=== PATIENT | male | born 1960 | race Caucasian/White ===

== ENCOUNTER 2021-10-05 18:19 | Inpatient (IN) | payer MEDICARE, BC ==
[2021-10-05] MEDS ORDERED: SODIUM CHLORIDE 0.9% 1,000 ML IV STA (18:24)
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
[2021-10-05 19:04] LABS: Basophils % (A) 1 %; Eosinophils % (A) 1 %; HCT 40.4 % (39.0-53.0); HGB 13.8 gm/dL (13.0-17.5); Lymphocytes # (A) 0.6 k/uL (1.0-4.8); Lymphocytes % (A) 20 %; MCH 34.6 pg (25.0-35.0); MCHC 34.2 g/dL (31.0-37.0); MCV 101.2 fL (80.0-100.0); Macrocytosis Slight; Mean Platelet Volume 9.9; Monocytes # (A) 0.2 k/uL (0-1.0); Monocytes % (A) 7 %; Neutrophils % (A) 70 %; RBC 3.99 m/uL (4.30-5.90); RDW 14.2 % (11.5-15.5); WBC 2.9 k/uL (3.8-10.6)
[2021-10-05 19:12] LABS: INR 1.1 (<1.2); Partial Thromboplastin Time 25.6 sec (22.0-30.0); Prothrombin Time 11.5 sec (9.0-12.0)
[2021-10-05 19:40] LABS: ALT 131 U/L (4-49); AST 328 U/L (17-59); African American GFR (CKD) >90 (>60 ml/min/1.73 sqM); Albumin 4.6 g/dL (3.5-5.0); Alkaline Phosphatase 233 U/L (38-126); Anion Gap 17 mmol/L; Blood Urea Nitrogen 8 mg/dL (9-20); Calcium 8.1 mg/dL (8.4-10.2); Carbon Dioxide 24 mmol/L (22-30); Chloride 102 mmol/L (98-107); Glucose 123 mg/dL (74-99); Lipase 489 U/L (23-300); Magnesium 1.6 mg/dL (1.6-2.3); Non-African American GFR(CKD) >90 (>60 ml/min/1.73 sqM); Potassium 3.7 mmol/L (3.5-5.1); Sodium 143 mmol/L (137-145); Total Bilirubin 3.8 mg/dL (0.2-1.3)
--- NOTE | 2021-10-05 19:51 | XR ---
EXAMINATION TYPE: XR chest 2V DATE OF EXAM: 10/05/2021 7:26 PM COMPARISON: None TECHNIQUE: XR chest 2V Frontal view of the chest. CLINICAL INDICATION:Male, 60 years old with history of dysrhythmia; FINDINGS: Lungs/Pleura: There is flattening of the diaphragm with increased lucency of the lungs. No evidence o f pneumothorax, pleural effusion or focal consolidation. Pulmonary vascularity: Unremarkable. Heart/mediastinum: Cardiomediastinal silhouette is prominent in size. Musculoskeletal: No acute osseous pathology. IMPRESSION: 1. No acute cardiopulmonary disease process. 2. COPD changes.
[2021-10-05 20:01] LABS: Platelet Count 31 k/uL (150-450)
[2021-10-05 20:30] LABS: Alcohol 421 mg/dL
[2021-10-05] MEDS ORDERED: LORazepam 2 MG/ML INJ IV PRN (20:53)
[2021-10-05] MEDS ORDERED: THIAMINE 100 MG/ML 2 ML VIAL IM STA (20:53)
[2021-10-05] MEDS ORDERED: NALOXONE 0.4 MG/ML 1 ML VIAL IV PRN (21:14)
[2021-10-05] MEDS ORDERED: ASPIRIN 81 MG PO STA (21:16)
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
[2021-10-06] MEDS: SODIUM CHLORIDE 0.9% 1,000 ML IV SCH ×3 (03:08→15:38)
[2021-10-06] MEDS ORDERED: SODIUM CHLORIDE 0.9% 1,000 ML IV ONE (03:08)
[2021-10-06 06:01] LABS: HCT 34.5 % (39.0-53.0); HGB 11.9 gm/dL (13.0-17.5); MCHC 34.4 g/dL (31.0-37.0); MCV 101.7 fL (80.0-100.0); Macrocytosis Slight; Mean Platelet Volume 10.1; RBC 3.39 m/uL (4.30-5.90); RDW 14.3 % (11.5-15.5); WBC 2.3 k/uL (3.8-10.6)
[2021-10-06 06:02] LABS: ALT 137 U/L (4-49); AST 345 U/L (17-59); African American GFR (CKD) >90 (>60 ml/min/1.73 sqM); Albumin 3.9 g/dL (3.5-5.0); Alkaline Phosphatase 186 U/L (38-126); Anion Gap 12 mmol/L; Blood Urea Nitrogen 7 mg/dL (9-20); Calcium 7.8 mg/dL (8.4-10.2); Carbon Dioxide 25 mmol/L (22-30); Chloride 103 mmol/L (98-107); Glucose 88 mg/dL (74-99); Non-African American GFR(CKD) >90 (>60 ml/min/1.73 sqM); Potassium 3.5 mmol/L (3.5-5.1); Sodium 140 mmol/L (137-145); Total Bilirubin 3.7 mg/dL (0.2-1.3); Total Protein 7.1 g/dL (6.3-8.2)
[2021-10-06 06:03] LABS: Platelet Count 23 k/uL (150-450)
[2021-10-06] MEDS: THIAMINE 100 MG TAB PO SCH ×2 (10:05→17:40)
[2021-10-06] MEDS: LORazepam 2 MG/ML INJ IV PRN ×5 (11:39→23:07)
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
[2021-10-06 16:20] LABS: INR 1.1 (<1.2); LDH 935 U/L (313-618); Partial Thromboplastin Time 28.4 sec (22.0-30.0); Prothrombin Time 12.1 sec (9.0-12.0)
--- NOTE | 2021-10-06 20:10 | P.CONS ---
History of Present Illness - Reason for Consult Consult date: 10/06/21 pancytopenia Requesting physician: Anastacio Mcmanus - Chief Complaint ETOH Intox - History of Present Illness Mr. Linda is a 60 year old male who presented with ETOH intoxication, he was seen in ER with evidence of DTs. On admission Liver enzymes elevated and WBC, Hemoglobin and platelets all decreased, therefore we have been asked to further evaluate pancytopenia. Patient is awake, moderate tremors. Answering appropriately and calmly. He denies any known history of low blood counts, liver disease or cancer. Review of Systems All systems: negative Constitutional: Reports as per HPI Past Medical History Past Medical History: Atrial Fibrillation History of Any Multi-Drug Resistant Organisms: None Reported Past Surgical History: Orthopedic Surgery Past Psychological History: Anxiety, Depression Smoking Status: Current every day smoker Past Alcohol Use History: Abuse, Daily, Heavy Past Drug Use History: None Reported - Past Family History Father Family Medical History: Cancer Medications and Allergies Home Medications Medication Instructions Recorded Confirmed Type No Known Home Medications 10/05/21 10/05/21 History Allergies Allergy/AdvReac Type Severity Reaction Status Date / Time No Known Allergies Allergy Verified 10/05/21 22:04 Physical Exam Vitals: Vital Signs Temp Pulse Pulse Resp BP BP Pulse Ox 10/06/21 14:00 18 10/06/21 11:30 98.0 F 95 18 161/95 97 10/06/21 07:36 98.0 F 100 18 148/73 95 10/06/21 05:15 98 15 141/76 95 10/06/21 03:00 98 20 158/84 94 L 10/05/21 18:21 97.5 F L 113 H 18 130/96 94 L Intake and Output 10/05/21 10/06/21 10/06/21 22:59 06:59 14:59 Intake Total 790 Balance 790 Intake: Oral 790 Other: Voiding Method Toilet Weight 77.111 kg 77.111 kg - Constitutional General appearance: cooperative, mild distress - EENT Eyes: poor dentition - Neck Neck: normal ROM - Respiratory Respiratory: bilateral: diminished - Cardiovascular Rhythm: regularly irregular - Gastrointestinal 2-3 Below diaphragm General gastrointestinal: hepatomegaly - Integumentary Integumentary: pale - Musculoskeletal Tremors Musculoskeletal: generalized weakness - Psychiatric Psychiatric: A&O x's 3 Results CBC & Chem 7: 10/06/21 05:14 10/06/21 05:14 Labs: Abnormal Lab Results - Last 24 Hours (Table) 10/05/21 10/05/21 10/05/21 Range/Units 18:46 18:46 18:46 WBC 2.9 L (3.8-10.6) k/uL RBC 3.99 L (4.30-5.90) m/uL Hgb (13.0-17.5) gm/dL Hct (39.0-53.0) % MCV 101.2 H (80.0-100.0) fL Plt Count 31 L (150-450) k/uL Lymphocytes # 0.6 L (1.0-4.8) k/uL BUN 8 L (9-20) mg/dL Creatinine 0.59 L (0.66-1.25) mg/dL Glucose 123 H (74-99) mg/dL Plasma Lactic Acid Rogelio (0.7-2.0) mmol/L Calcium 8.1 L (8.4-10.2) mg/dL Total Bilirubin 3.8 H (0.2-1.3) mg/dL AST 328 H (17-59) U/L ALT 131 H (4-49) U/L Alkaline Phosphatase 233 H (38-126) U/L Troponin I 0.039 H* (0.000-0.034) ng/mL Lipase 489 H (23-300) U/L Vitamin B12 (200.0-944.0) pg/mL Serum Alcohol 421 H* mg/dL 10/06/21 10/06/21 10/06/21 Range/Units 01:31 01:31 05:14 WBC (3.8-10.6) k/uL RBC (4.30-5.90) m/uL Hgb (13.0-17.5) gm/dL Hct (39.0-53.0) % MCV (80.0-100.0) fL Plt Count (150-450) k/uL Lymphocytes # (1.0-4.8) k/uL BUN (9-20) mg/dL Creatinine (0.66-1.25) mg/dL Glucose (74-99) mg/dL Plasma Lactic Acid Rogelio 2.1 H* (0.7-2.0) mmol/L Calcium (8.4-10.2) mg/dL Total Bilirubin (0.2-1.3) mg/dL AST (17-59) U/L ALT (4-49) U/L Alkaline Phosphatase (38-126) U/L Troponin I 0.037 H* (0.000-0.034) ng/mL Lipase (23-300) U/L Vitamin B12 1166.0 H (200.0-944.0) pg/mL Serum Alcohol mg/dL 10/06/21 10/06/21 Range/Units 05:14 05:14 WBC 2.3 L (3.8-10.6) k/uL RBC 3.39 L (4.30-5.90) m/uL Hgb 11.9 L (13.0-17.5) gm/dL Hct 34.5 L (39.0-53.0) % MCV 101.7 H (80.0-100.0) fL Plt Count 23 L (150-450) k/uL Lymphocytes # (1.0-4.8) k/uL BUN 7 L (9-20) mg/dL Creatinine 0.55 L (0.66-1.25) mg/dL Glucose (74-99) mg/dL Plasma Lactic Acid Rogelio (0.7-2.0) mmol/L Calcium 7.8 L (8.4-10.2) mg/dL Total Bilirubin 3.7 H (0.2-1.3) mg/dL AST 345 H (17-59) U/L ALT 137 H (4-49) U/L Alkaline Phosphatase 186 H (38-126) U/L Troponin I (0.000-0.034) ng/mL Lipase (23-300) U/L Vitamin B12 (200.0-944.0) pg/mL Serum Alcohol mg/dL Assessment and Plan (1) Pancytopenia Narrative/Plan: likely related to ETOH and underlying liver disease with possible marrow suppression Other causes worked up Assessment of underlying liver disease ETOH withdrawals and other medical care per primary team. Current Visit: Yes Status: Acute Code(s): D61.818 - OTHER PANCYTOPENIA SNOMED Code(s): 519094426 Plan: Dr. Evans: I have completed the full history and physical and developed the above impression and plan, agree with dictation dictated as a scribe.
[2021-10-06 23:06] LABS: Protein, Total 6.5 g/dL (6.2-8.2)
[2021-10-06 23:15] LABS: % Iron Saturation 21.43 (15.00-50.00); Iron 58 ug/dL (65-175); Rheumatoid Factor, Qnt <10 IU/mL (0-15); Total Iron Binding Capacity 269 ug/dL (228-460)
--- NOTE | 2021-10-07 08:08 | US ---
EXAMINATION TYPE: US liver DATE OF EXAM: 10/07/2021 COMPARISON: NONE CLINICAL HISTORY: liver dz, etoh. liver dz, etoh *Patient was uncooperative during exam EXAM MEASUREMENTS: Liver Length: 15.6 cm Gallbladder Wall: 0.21 cm CBD: 0.81 cm Right Kidney: 12.6 x 6.5 x 6.1 cm Pancreas: Obscured by bowel gas Liver: Increased attenuation, decreased visualization of vessels suggestive of fatty infiltrate, het erogeneous Gallbladder: Multiple mobile stones seen in GB Evidence for sonographic Mobley's sign: No CBD: Possibly dilated Right Kidney: wnl Trace amount of fluid seen in RUQ IMPRESSION: 1. Cholelithiasis. 2. Dilated common bile duct. 3. Limitation due to bowel gas obscuring portions of the exam.
[2021-10-07] MEDS: SODIUM CHLORIDE 0.9% 1,000 ML IV SCH ×4 (08:21→17:09)
[2021-10-07] MEDS: THIAMINE 100 MG TAB PO SCH ×2 (08:27→17:07)
[2021-10-07] MEDS: LORazepam 2 MG/ML INJ IV PRN ×6 (08:27→23:14)
[2021-10-07 08:54] LABS: Free Kappa Lt Chain Qnt, Serum 3.78 mg/dL (0.33-1.94); Free Lambda Lt Chain Qnt, Seru 2.64 mg/dL (0.57-2.63)
[2021-10-07 09:13] LABS: ALT 129 U/L (4-49); AST 341 U/L (17-59); African American GFR (CKD) >90 (>60 ml/min/1.73 sqM); Albumin 3.7 g/dL (3.5-5.0); Alkaline Phosphatase 168 U/L (38-126); Anion Gap 14 mmol/L; Blood Urea Nitrogen 8 mg/dL (9-20); Calcium 8.2 mg/dL (8.4-10.2); Carbon Dioxide 23 mmol/L (22-30); Chloride 98 mmol/L (98-107); Glucose 71 mg/dL (74-99); Non-African American GFR(CKD) >90 (>60 ml/min/1.73 sqM); Potassium 3.3 mmol/L (3.5-5.1); Sodium 135 mmol/L (137-145); Total Bilirubin 2.8 mg/dL (0.2-1.3); Total Protein 6.7 g/dL (6.3-8.2)
[2021-10-07 09:28] LABS: Basophils % (A) 2 %; Eosinophils % (A) 1 %; HCT 35.7 % (39.0-53.0); HGB 11.9 gm/dL (13.0-17.5); Lymphocytes # (A) 0.7 k/uL (1.0-4.8); Lymphocytes % (A) 38 %; MCHC 33.4 g/dL (31.0-37.0); MCV 101.7 fL (80.0-100.0); Macrocytosis Slight; Monocytes # (A) 0.2 k/uL (0-1.0); Monocytes % (A) 10 %; Neutrophils # (A) 0.9 k/uL (1.3-7.7); Neutrophils % (A) 46 %; RBC 3.51 m/uL (4.30-5.90); RDW 13.4 % (11.5-15.5); WBC 1.9 k/uL (3.8-10.6)
[2021-10-07 10:15] LABS: Platelet Count 13 k/uL (150-450)
[2021-10-07] MEDS ORDERED: POTASSIUM CHLORIDE ER 20 MEQ TAB.ER PO STA (13:32)
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
[2021-10-07] MEDS: MAGNESIUM SULFATE-D5W PMX 1 GM in DEXTROSE/WATER 1 100ML.BAG IVPB SCH ×2 (14:01→17:08)
[2021-10-08] MEDS ORDERED: chlordiazePOXIDE 25 MG CAP PO STA (01:04)
[2021-10-08] MEDS: LORazepam 2 MG/ML INJ IV PRN ×3 (01:07→23:05)
[2021-10-08 08:04] LABS: Basophils # (A) 0.1 k/uL (0-0.2); Basophils % (A) 2 %; Eosinophils % (A) 1 %; HGB 13.5 gm/dL (13.0-17.5); Lymphocytes # (A) 0.8 k/uL (1.0-4.8); Lymphocytes % (A) 30 %; MCH 33.1 pg (25.0-35.0); MCV 103.3 fL (80.0-100.0); Macrocytosis Slight; Mean Platelet Volume 12.2; Monocytes # (A) 0.1 k/uL (0-1.0); Monocytes % (A) 5 %; Neutrophils # (A) 1.5 k/uL (1.3-7.7); Neutrophils % (A) 59 %; RBC 4.07 m/uL (4.30-5.90); RDW 13.6 % (11.5-15.5); WBC 2.5 k/uL (3.8-10.6)
[2021-10-08 08:17] LABS: ALT 129 U/L (4-49); AST 331 U/L (17-59); African American GFR (CKD) >90 (>60 ml/min/1.73 sqM); Albumin 4.2 g/dL (3.5-5.0); Alkaline Phosphatase 204 U/L (38-126); Anion Gap 11 mmol/L; Blood Urea Nitrogen 9 mg/dL (9-20); Calcium 8.5 mg/dL (8.4-10.2); Carbon Dioxide 22 mmol/L (22-30); Chloride 102 mmol/L (98-107); Glucose 98 mg/dL (74-99); Magnesium 1.7 mg/dL (1.6-2.3); Non-African American GFR(CKD) >90 (>60 ml/min/1.73 sqM); Potassium 3.7 mmol/L (3.5-5.1); Sodium 135 mmol/L (137-145); Total Bilirubin 2.3 mg/dL (0.2-1.3); Total Protein 7.8 g/dL (6.3-8.2)
[2021-10-08 08:20] LABS: Platelet Count 14 k/uL (150-450)
[2021-10-08] MEDS: SODIUM CHLORIDE 0.9% 1,000 ML IV SCH (08:52)
[2021-10-08] MEDS: THIAMINE 100 MG TAB PO SCH ×2 (08:54→17:43)
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
[2021-10-08] MEDS: chlordiazePOXIDE 25 MG CAP PO SCH ×2 (17:43→20:51)
[2021-10-08] MEDS: HYDROcodone/APAP 5-325MG 1 EACH TAB PO PRN (20:51)
[2021-10-08] MEDS: NICOTINE 21MG/24HR PATCH TRANSDERM SCH (20:51)
[2021-10-09] MEDS: THIAMINE 100 MG TAB PO SCH ×2 (06:11→18:10)
[2021-10-09] MEDS: SODIUM CHLORIDE 0.9% 1,000 ML IV SCH ×3 (06:19→19:46)
[2021-10-09 08:18] LABS: Basophils % (A) 0 %; Eosinophils % (A) 0 %; HCT 42.5 % (39.0-53.0); Lymphocytes # (A) 0.7 k/uL (1.0-4.8); Lymphocytes % (A) 22 %; MCH 33.5 pg (25.0-35.0); MCHC 32.8 g/dL (31.0-37.0); MCV 102.2 fL (80.0-100.0); Macrocytosis Slight; Mean Platelet Volume 11.9; Monocytes # (A) 0.2 k/uL (0-1.0); Monocytes % (A) 7 %; Neutrophils # (A) 2.1 k/uL (1.3-7.7); Neutrophils % (A) 68 %; RBC 4.16 m/uL (4.30-5.90); RDW 13.7 % (11.5-15.5); WBC 3.1 k/uL (3.8-10.6)
[2021-10-09 08:28] LABS: Platelet Count 21 k/uL (150-450)
[2021-10-09 08:31] LABS: ALT 103 U/L (4-49); AST 230 U/L (17-59); African American GFR (CKD) >90 (>60 ml/min/1.73 sqM); Albumin 4.2 g/dL (3.5-5.0); Alkaline Phosphatase 197 U/L (38-126); Anion Gap 15 mmol/L; Blood Urea Nitrogen 14 mg/dL (9-20); Calcium 8.6 mg/dL (8.4-10.2); Carbon Dioxide 22 mmol/L (22-30); Chloride 98 mmol/L (98-107); Glucose 102 mg/dL (74-99); Magnesium 1.7 mg/dL (1.6-2.3); Non-African American GFR(CKD) >90 (>60 ml/min/1.73 sqM); Phosphorus 3.9 mg/dL (2.5-4.5); Potassium 3.2 mmol/L (3.5-5.1); Sodium 135 mmol/L (137-145); Total Bilirubin 2.3 mg/dL (0.2-1.3); Total Protein 7.8 g/dL (6.3-8.2)
[2021-10-09] MEDS: NICOTINE 21MG/24HR PATCH TRANSDERM SCH (08:31)
[2021-10-09] MEDS: chlordiazePOXIDE 25 MG CAP PO SCH ×3 (08:32→20:27)
[2021-10-09] MEDS: LORazepam 2 MG/ML INJ IV PRN ×3 (08:32→22:26)
--- NOTE | 2021-10-09 10:55 | P.PN ---
Subjective Patient was examined at bedside today not complaining of any worsening symptomatology. Trace approximately fifth a day. Denies any episodes of fever, chills, nausea or vomiting. Objective - Vital Signs Vital signs: Vital Signs Temp 99.1 F 10/09/21 08:27 Pulse 110 H 10/09/21 08:27 Resp 18 10/09/21 08:27 BP 110/74 10/09/21 08:27 Pulse Ox 93 L 10/09/21 08:27 FiO2 Intake & Output 10/08/21 10/09/21 10/09/21 18:59 06:59 18:59 Intake Total 10 Output Total 500 200 Balance -500 -200 10 Intake: IV 10 Invasive Line 2 10 Output: Urine 500 200 Other: Voiding Method Urinal Urinal Diaper Diaper # Voids 2 2 - Exam Constitutional: No acute distress, on room air HEENT: Pupils equally reactive to light, atraumatic, normocephalic. Lungs: Clear to auscultation bilaterally, no wheezing, no crackles Cardiovascular: Sinus tachycardia, S1-S2 normal, no murmur, no peripheral edema Abdominal: Soft, nontender, no guarding, rebound or rigidity Extremities: No cyanosis or clubbing Neuro: No focal neurological signs alert - Labs CBC & Chem 7: 10/09/21 07:32 10/09/21 07:32 Labs: Abnormal Lab Results - Last 24 Hours (Table) 10/09/21 10/09/21 Range/Units 07:32 07:32 WBC 3.1 L (3.8-10.6) k/uL RBC 4.16 L (4.30-5.90) m/uL MCV 102.2 H (80.0-100.0) fL Plt Count 21 L (150-450) k/uL Lymphocytes # 0.7 L (1.0-4.8) k/uL Sodium 135 L (137-145) mmol/L Potassium 3.2 L (3.5-5.1) mmol/L Creatinine 0.64 L (0.66-1.25) mg/dL Glucose 102 H (74-99) mg/dL Total Bilirubin 2.3 H (0.2-1.3) mg/dL AST 230 H (17-59) U/L ALT 103 H (4-49) U/L Alkaline Phosphatase 197 H (38-126) U/L Assessment and Plan Assessment: Alcohol intoxication, impending withdrawal -[facility] protocol-patient is still requiring IV Ativan use overnight. -Librium for withdrawal symptoms -Thiamine -Fall, aspiration, seizure precautions -Monitor electrolytes -IV fluids Elevated troponin -Flat trajectory -No chest pain, likely demand ischemia -Continue Cardiac monitoring Pancytopenia -Clinic count today trending up from 14-21. -Presumed Secondary to bone marrow suppression from chronic alcohol use, however hematology oncology is consulted for further recommendations. -No anticoagulation, no antiplatelet medication Abnormal LFTs -Improving. Total bilirubin improved, liver ultrasound showed fatty liver, cholelithiasis, dilated common bile duct -Continue to monitor Hypomagnesemia Hypokalemia -Continue to monitor and replace magnesium and potassium. We'll order another 2 g of IV magnesium DVT prophylaxis -IPCDs -No heparin or Lovenox due to low platelets. Disposition: Patient will be downgraded to general medical floor. He will continue to wear remote telemetry. We'll wait further recommendations from hematology oncology regarding patient's pancytopenia. Patient is currently still on IV Ativan for all call withdrawals which we will continue to transition off. PTOT of also been consulted for rehab recommendations this patient is showing some significant generalized weakness
[2021-10-09 15:50] LABS: Appearance,Urine Clear (Clear); Bilirubin,Urine 1+ (Negative); Blood,Urine Negative (Negative); Color,Urine Orange; Glucose,Urine (UA) Negative (Negative); Ketones,Urine 1+ (Negative); Leukocyte Esterase,Urine Negative (Negative); Mucus,Urine Few /hpf; Nitrite,Urine Negative (Negative); PH, Urine 6.5 (5.0-8.0); Protein,Urine 1+ (Negative); RBC,Urine 2 /hpf (0-5); Specific Gravity,Urine 1.031 (1.001-1.035); Squamous Epithelial Cell,Urine <1 /hpf (0-4); WBC,Urine 1 /hpf (0-5)
[2021-10-10] MEDS: LORazepam 2 MG/ML INJ IV PRN ×2 (02:28→11:30)
[2021-10-10] MEDS: THIAMINE 100 MG TAB PO SCH ×2 (06:20→16:54)
[2021-10-10] MEDS: SODIUM CHLORIDE 0.9% 1,000 ML IV SCH ×4 (06:37→20:58)
[2021-10-10] MEDS: NICOTINE 21MG/24HR PATCH TRANSDERM SCH (09:44)
[2021-10-10] MEDS: chlordiazePOXIDE 25 MG CAP PO SCH ×3 (09:44→20:58)
[2021-10-10 13:23] LABS: Albumin 3.64 g/dL (3.80-4.90); Gamma Globulin 1.21 g/dL (0.70-1.50)
[2021-10-10 14:56] LABS: Basophils % (A) 0 %; Eosinophils % (A) 2 %; HGB 12.5 gm/dL (13.0-17.5); Lymphocytes # (A) 0.7 k/uL (1.0-4.8); Lymphocytes % (A) 36 %; MCH 33.9 pg (25.0-35.0); MCHC 32.9 g/dL (31.0-37.0); MCV 102.9 fL (80.0-100.0); Macrocytosis Slight; Mean Platelet Volume 12.3; Monocytes # (A) 0.2 k/uL (0-1.0); Monocytes % (A) 12 %; Neutrophils # (A) 0.8 k/uL (1.3-7.7); Neutrophils % (A) 46 %; RBC 3.69 m/uL (4.30-5.90); RDW 13.8 % (11.5-15.5); WBC 1.8 k/uL (3.8-10.6)
[2021-10-10 15:08] LABS: Potassium 3.5 mmol/L (3.5-5.1)
[2021-10-10 15:09] LABS: African American GFR (CKD) >90 (>60 ml/min/1.73 sqM); Anion Gap 5 mmol/L; Blood Urea Nitrogen 10 mg/dL (9-20); Calcium 8.2 mg/dL (8.4-10.2); Carbon Dioxide 27 mmol/L (22-30); Chloride 104 mmol/L (98-107); Glucose 101 mg/dL (74-99); Non-African American GFR(CKD) >90 (>60 ml/min/1.73 sqM); Platelet Count 26 k/uL (150-450); Sodium 136 mmol/L (137-145)
--- NOTE | 2021-10-10 15:11 | P.PN ---
Subjective Patient was examined at bedside today not complaining of any worsening symptomatology does endorse a cough with very minimal sputum production. Dis cussed with RN present at bedside. Still waiting on morning labs still not have been drawn. Objective - Vital Signs Vital signs: Vital Signs Temp 98.0 F 10/10/21 08:00 Pulse 94 10/10/21 08:00 Resp 18 10/10/21 08:00 BP 128/76 10/10/21 08:00 Pulse Ox 93 L 10/10/21 08:00 FiO2 Intake & Output 10/09/21 10/10/21 10/10/21 18:59 06:59 18:59 Intake Total 128 357 Output Total 300 Balance 128 -300 357 Intake: IV 10 Invasive Line 2 10 Oral 118 357 Output: Urine 300 Other: Voiding Method Urinal Urinal Urinal Diaper Diaper Diaper # Voids 1 1 1 # Bowel Movements 1 1 - Exam Constitutional: No acute distress, on room air HEENT: Pupils equally reactive to light, atraumatic, normocephalic. Lungs: Clear to auscultation bilaterally, no wheezing, no crackles Cardiovascular: Sinus S1-S2 normal, no murmur, no peripheral edema Abdominal: Soft, nontender, no guarding, rebound or rigidity Extremities: No cyanosis or clubbing Neuro: No focal neurological signs alert - Labs CBC & Chem 7: 10/09/21 07:32 10/09/21 07:32 Labs: Abnormal Lab Results - Last 24 Hours (Table) 10/06/21 10/09/21 Range/Units 15:29 14:38 Albumin (PEP) 3.64 L (3.80-4.90) g/dL [id number] 0.54 L (0.60-1.00) g/dL Urine Protein 1+ H (Negative) Urine Ketones 1+ H (Negative) Urine Bilirubin 1+ H (Negative) Urine Mucus Few H (None) /hpf Microbiology - Last 24 Hours (Table) 10/08/21 11:39 Blood Culture - Preliminary Blood No Growth after 48 hours Assessment and Plan Assessment: Alcohol intoxication, impending withdrawal -[facility] protocol-patient is still requiring IV Ativan use overnight. -Librium for withdrawal symptoms we'll wean that down today to 3 times a day -Thiamine -Fall, aspiration, seizure precautions -Monitor electrolytes -IV fluids Elevated troponin -Flat trajectory -No chest pain, likely demand ischemia -Continue Cardiac monitoring Pancytopenia -Clinic count today trending up 26 -Presumed Secondary to bone marrow suppression from chronic alcohol use, however hematology oncology is consulted for further recommendations. -No anticoagulation, no antiplatelet medication -Hematology/oncology pending recommendations regarding discharge planning. Abnormal LFTs -Improving. Total bilirubin improved, liver ultrasound showed fatty liver, cholelithiasis, dilated common bile duct -Continue to monitor DVT prophylaxis -IPCDs -No heparin or Lovenox due to low platelets. Disposition: Patient will be downgraded to general medical floor. He will continue to wear remote telemetry. We'll wait further recommendations from hematology oncology regarding patient's pancytopenia. Patient is currently still on IV Ativan for all call withdrawals which we will continue to transition off. PTOT of also been consulted for rehab recommendations this patient is showing some significant generalized weakness
--- NOTE | 2021-10-10 16:16 | P.PN ---
Subjective Progress Note Date: 10/10/21 Patient without any new complaints. He still appears to be somewhat shaky. No fever/chills/nausea/vomiting. Objective - Vital Signs Vital signs: Vital Signs Temp 98.1 F 10/10/21 14:00 Pulse 65 10/10/21 14:00 Resp 18 10/10/21 14:00 BP 112/74 10/10/21 14:00 Pulse Ox 94 L 10/10/21 14:00 FiO2 Intake & Output 10/09/21 10/10/21 10/10/21 18:59 06:59 18:59 Intake Total 128 357 Output Total 300 Balance 128 -300 357 Intake: IV 10 Invasive Line 2 10 Oral 118 357 Output: Urine 300 Other: Voiding Method Urinal Urinal Urinal Diaper Diaper Diaper # Voids 1 1 1 # Bowel Movements 1 1 - Constitutional General appearance: Present: no acute distress - EENT Eyes: Present: EOMI ENT: Present: hearing grossly normal, normal oropharynx - Respiratory Respiratory: bilateral: CTA - Cardiovascular Rhythm: regular Heart sounds: normal: S1, S2 - Gastrointestinal General gastrointestinal: Present: normal bowel sounds, soft - Integumentary Integumentary: Present: normal - Neurologic Neurologic: Present: CNII-XII intact - Musculoskeletal Musculoskeletal: Present: generalized weakness, strength equal bilaterally - Psychiatric Psychiatric: Present: A&O x's 3, appropriate affect - Labs CBC & Chem 7: 10/10/21 14:36 10/10/21 14:36 Labs: Abnormal Lab Results - Last 24 Hours (Table) 10/06/21 10/10/21 10/10/21 Range/Units 15:29 14:36 14:36 WBC 1.8 L (3.8-10.6) k/uL RBC 3.69 L (4.30-5.90) m/uL Hgb 12.5 L (13.0-17.5) gm/dL Hct 38.0 L (39.0-53.0) % MCV 102.9 H (80.0-100.0) fL Plt Count 26 L (150-450) k/uL Neutrophils # 0.8 L (1.3-7.7) k/uL Lymphocytes # 0.7 L (1.0-4.8) k/uL Sodium 136 L (137-145) mmol/L Creatinine 0.58 L (0.66-1.25) mg/dL Glucose 101 H (74-99) mg/dL Calcium 8.2 L (8.4-10.2) mg/dL Albumin (PEP) 3.64 L (3.80-4.90) g/dL [id number] 0.54 L (0.60-1.00) g/dL Microbiology - Last 24 Hours (Table) 10/08/21 11:39 Blood Culture - Preliminary Blood No Growth after 48 hours Assessment and Plan (1) Pancytopenia Narrative/Plan: Multiple labs ordered. Results are available so far do not show any deficiency state, or paraproteinemia. Protein electrophoresis is pending. Otherwise clinical picture so far appears to be quite compatible with the initial primary differential diagnosis that is bone marrow suppression from excessive alcohol use. - Counts remain in a safe range. Platelets had declined less than 20,000 but have improved 21,000 today. Continue to monitor. Transfusions as needed to keep hemoglobin greater than 7, and platelets less than 10 as long as there is no active bleeding. Current Visit: Yes Status: Acute Code(s): D61.818 - OTHER PANCYTOPENIA SNOMED Code(s): 942173178 Plan: Defer to the intake service for management of his Presenting complaint of acute alcohol intoxication, as well as ongoing concerns for subsequent alcohol withdrawal.
[2021-10-11 06:01] LABS: Vit B1(Thiamine) 73 ug/L (38-122)
[2021-10-11 06:41] LABS: Methylmalonic Acid <0.10 umol/L (<0.40)
[2021-10-11 08:35] LABS: HCT 40.1 % (39.0-53.0); HGB 13.5 gm/dL (13.0-17.5); MCH 34.5 pg (25.0-35.0); MCHC 33.8 g/dL (31.0-37.0); MCV 102.2 fL (80.0-100.0); Macrocytosis Slight; Mean Platelet Volume 10.9; RBC 3.92 m/uL (4.30-5.90); RDW 14.3 % (11.5-15.5); WBC 2.3 k/uL (3.8-10.6)
[2021-10-11 08:37] LABS: Platelet Count 34 k/uL (150-450)
[2021-10-11 08:50] LABS: African American GFR (CKD) >90 (>60 ml/min/1.73 sqM); Anion Gap 9 mmol/L; Blood Urea Nitrogen 6 mg/dL (9-20); Calcium 8.2 mg/dL (8.4-10.2); Carbon Dioxide 23 mmol/L (22-30); Chloride 104 mmol/L (98-107); Glucose 90 mg/dL (74-99); Non-African American GFR(CKD) >90 (>60 ml/min/1.73 sqM); Potassium 3.6 mmol/L (3.5-5.1); Sodium 136 mmol/L (137-145)
[2021-10-11] MEDS: NICOTINE 21MG/24HR PATCH TRANSDERM SCH (09:46)
[2021-10-11] MEDS: THIAMINE 100 MG TAB PO SCH ×2 (09:47→18:28)
[2021-10-11] MEDS: SODIUM CHLORIDE 0.9% 1,000 ML IV SCH ×2 (09:47→13:10)
--- NOTE | 2021-10-11 14:13 | P.PN ---
Subjective Patient was examined at bedside today denies any new symptomatology. Patient continues to be weak especially on ambulation as per RN. Been evaluated by PT/OT case discussed with RN and case management. Objective - Vital Signs Vital signs: Vital Signs Temp 98.9 F 10/11/21 11:29 Pulse 98 10/11/21 11:29 Resp 17 10/11/21 11:29 BP 108/70 10/11/21 11:29 Pulse Ox 93 L 10/11/21 11:29 FiO2 Intake & Output 10/10/21 10/11/21 10/11/21 18:59 06:59 18:59 Intake Total 597 Output Total 400 Balance 597 -400 Intake: Oral 597 Output: Urine 400 Other: Voiding Method Urinal Toilet Toilet Diaper # Voids 1 5 3 # Bowel Movements 1 - Exam Constitutional: No acute distress, on room air HEENT: Pupils equally reactive to light, atraumatic, normocephalic. Lungs: Clear to auscultation bilaterally, no wheezing, no crackles Cardiovascular: Sinus S1-S2 normal, no murmur, no peripheral edema Abdominal: Soft, nontender, no guarding, rebound or rigidity Extremities: No cyanosis or clubbing Neuro: No focal neurological signs alert - Labs CBC & Chem 7: 10/11/21 08:24 10/11/21 08:24 Labs: Abnormal Lab Results - Last 24 Hours (Table) 10/10/21 10/10/21 10/11/21 Range/Units 14:36 14:36 08:24 WBC 1.8 L 2.3 L (3.8-10.6) k/uL RBC 3.69 L 3.92 L (4.30-5.90) m/uL Hgb 12.5 L (13.0-17.5) gm/dL Hct 38.0 L (39.0-53.0) % MCV 102.9 H 102.2 H (80.0-100.0) fL Plt Count 26 L 34 L (150-450) k/uL Neutrophils # 0.8 L (1.3-7.7) k/uL Lymphocytes # 0.7 L (1.0-4.8) k/uL Sodium 136 L (137-145) mmol/L BUN (9-20) mg/dL Creatinine 0.58 L (0.66-1.25) mg/dL Glucose 101 H (74-99) mg/dL Calcium 8.2 L (8.4-10.2) mg/dL 10/11/21 Range/Units 08:24 WBC (3.8-10.6) k/uL RBC (4.30-5.90) m/uL Hgb (13.0-17.5) gm/dL Hct (39.0-53.0) % MCV (80.0-100.0) fL Plt Count (150-450) k/uL Neutrophils # (1.3-7.7) k/uL Lymphocytes # (1.0-4.8) k/uL Sodium 136 L (137-145) mmol/L BUN 6 L (9-20) mg/dL Creatinine 0.54 L (0.66-1.25) mg/dL Glucose (74-99) mg/dL Calcium 8.2 L (8.4-10.2) mg/dL Microbiology - Last 24 Hours (Table) 10/08/21 11:39 Blood Culture - Preliminary Blood No Growth after 72 hours Assessment and Plan Assessment: Alcohol intoxication, impending withdrawal -[facility] protocol-patient is still requiring IV Ativan use overnight. -Librium for withdrawal symptoms we'll wean that down today to 3 times a day -Thiamine -Fall, aspiration, seizure precautions -Monitor electrolytes -IV fluids Elevated troponin -Flat trajectory -No chest pain, likely demand ischemia -Continue Cardiac monitoring Pancytopenia -Improving. -Presumed Secondary to bone marrow suppression from chronic alcohol use, however hematology oncology is consulted for further recommendations. -No anticoagulation, no antiplatelet medication -Hematology/oncology on board. Abnormal LFTs -Improving. Total bilirubin improved, liver ultrasound showed fatty liver, cholelithiasis, dilated common bile duct -Continue to monitor DVT prophylaxis -IPCDs -No heparin or Lovenox due to low platelets. Disposition: PT.OT
[2021-10-11] MEDS: HYDROcodone/APAP 5-325MG 1 EACH TAB PO PRN (19:28)
[2021-10-12] MEDS: SODIUM CHLORIDE 0.9% 1,000 ML IV SCH ×2 (04:06→11:35)
[2021-10-12] MEDS: THIAMINE 100 MG TAB PO SCH ×2 (08:15→17:32)
[2021-10-12] MEDS: NICOTINE 21MG/24HR PATCH TRANSDERM SCH (08:15)
[2021-10-12 11:04] LABS: African American GFR (CKD) 128.4 (60.0-200.0); Anion Gap 9.6 mmol/L (10.00-18.00); BUN/Creat Ratio 10.33 Ratio (12.00-20.00); Blood Urea Nitrogen 6.2 mg/dL (9.0-27.0); Calcium 8.2 mg/dL (8.7-10.3); Carbon Dioxide 24.4 mmol/L (20.0-27.5); Non-African American GFR(CKD) 110.8 (60.0-200.0); Potassium 3.6 mmol/L (3.5-5.5)
[2021-10-12 11:08] LABS: HCT 34.6 % (39.6-50.0); HGB 11.8 g/dL (13.0-17.0); Immature Platelet Fraction 18.1 % (1.1-6.1); MCH 33.8 pg (27.0-32.0); MCHC 34.1 g/dL (32.0-37.0); MCV 99.1 fL (80.0-97.0); Mean Platelet Volume 12.2 fL (9.5-12.2); NRBC Per 100 WBC 0 /100 WBCS (0.0-0.0); Platelet Count 49 X 10*3/uL (140-440); RBC 3.49 X 10*6/uL (4.40-5.60); RDW 14.2 % (11.5-14.5)
--- NOTE | 2021-10-12 13:07 | P.PN ---
Subjective Patient was examined at bedside today not complaining of any new symptomatology. Physical therapy was present at bedside working with the patient. He denies any hallucination auditory or visual. Not requiring anything on [facility] protocol. I discussed the case with RN. Objective - Vital Signs Vital signs: Vital Signs Temp 98 F 10/12/21 12:03 Pulse 86 10/12/21 12:03 Resp 16 10/12/21 12:03 BP 117/76 10/12/21 12:03 Pulse Ox 95 10/12/21 12:03 FiO2 Intake & Output 10/11/21 10/12/21 10/12/21 18:59 06:59 18:59 Output Total 400 400 400 Balance -400 -400 -400 Output: Urine 400 400 400 Other: Voiding Method Toilet Toilet # Voids 1 3 # Bowel Movements 2 - Exam Constitutional: No acute distress, on room air HEENT: Pupils equally reactive to light, atraumatic, normocephalic. Lungs: Clear to auscultation bilaterally, no wheezing, no crackles Cardiovascular: Sinus S1-S2 normal, no murmur, no peripheral edema Abdominal: Soft, nontender, no guarding, rebound or rigidity Extremities: No cyanosis or clubbing Neuro: No focal neurological signs alert - Labs CBC & Chem 7: 10/12/21 07:17 10/12/21 07:17 Labs: Abnormal Lab Results - Last 24 Hours (Table) 10/12/21 10/12/21 Range/Units 07:17 07:17 WBC 2.30 L (4.50-10.00) X 10*3/uL RBC 3.49 L (4.40-5.60) X 10*6/uL Hgb 11.8 L (13.0-17.0) g/dL Hct 34.6 L (39.6-50.0) % MCV 99.1 H (80.0-97.0) fL MCH 33.8 H (27.0-32.0) pg Plt Count 49 L (140-440) X 10*3/uL Immature Plt Fraction 18.1 H (1.1-6.1) % Anion Gap 9.60 L (10.00-18.00) mmol/L BUN 6.2 L (9.0-27.0) mg/dL BUN/Creatinine Ratio 10.33 L (12.00-20.00) Ratio Calcium 8.2 L (8.7-10.3) mg/dL Microbiology - Last 24 Hours (Table) 10/08/21 11:39 Blood Culture - Preliminary Blood No Growth after 72 hours Assessment and Plan Assessment: Alcohol intoxication, impending withdrawal -[facility] protocol - not requiring any Ativan -Patient was started on Librium we will de-escalate daily. -Thiamine, Fall, aspiration, seizure precautions -Monitor electrolytes Elevated troponin -Flat trajectory -No chest pain, likely demand ischemia -Continue Cardiac monitoring Pancytopenia -Improving. -Presumed Secondary to bone marrow suppression from chronic alcohol use, however hematology oncology is consulted for further recommendations. -No anticoagulation, no antiplatelet medication -Hematology/oncology on board. Abnormal LFTs -Improving. Total bilirubin improved, liver ultrasound showed fatty liver, cholelithiasis, dilated common bile duct -Continue to monitor DVT prophylaxis -SCDS -No heparin or Lovenox due to low platelets. Disposition: Patient is cleared to be discharge once okay with hematology/oncology. Pending placement to subacute rehab.
[2021-10-12 13:40] VITALS: BMI 23.0
[2021-10-12] MEDS: HYDROcodone/APAP 5-325MG 1 EACH TAB PO PRN (23:25)
[2021-10-13 05:21] VITALS: RESP 16
[2021-10-13] MEDS: NICOTINE 21MG/24HR PATCH TRANSDERM SCH (07:27)
[2021-10-13] MEDS: THIAMINE 100 MG TAB PO SCH (07:27)
[2021-10-13 12:43] VITALS: BP 127/81; PULSE 92; TEMP 98.1
--- NOTE | 2021-10-13 20:33 | P.DS ---
Providers Date of admission: 10/05/21 21:14 Expected date of discharge: 10/13/21 Attending physician: Antoinette Valderrama MD Consults: 10/06/21 13:27 Consult Physician Routine Consulting Provider: Valerio Swift Consult Reason/Comments: Pancytopenia Do you want consulting provider notified?: Yes Primary care physician: Stated None Hospital Course: Discharge Diagnosis: Alcohol intoxication Alcohol withdrawal Elevated troponin, secondary to demand ischemia and not reflective of myocardial injury Pancytopenia suspect secondary to bone marrow suppression Alcoholic hepatitis Hypomagnesemia Hypokalemia Gastritis Hospital Course: Patient is a 52-year-old male with known alcohol abuse, atrial fibrillation and tobacco abuse, who was brought into the ER for alcohol intoxication. Patient fell into a ditch, on EMS arrival he was tachycardic and thought to be in A. fib. Patient reported a history of DVTs without alcohol withdrawal seizures. In the ER his EKG revealed sinus tachycardia. Chest x-ray was unremarkable. Labs showed alcohol level of 421, platelets 31, troponin 0.039, AST 328, ALT 139. He was seen by oncology secondary to concerns for pancytopenia. His liver function continued to improve. Blood counts remained stable. He did not require any transfusions during hospital stay. He was started on Librium and was able to be down titrated. He initially was weak but recovered. He was determined stable for discharge home. Follow-up: Primary care physician out of [facility] in 1-2 days, Dr. Swift in 2-4 weeks, establish with a transit bus operator for further evaluation of hepatic dysfunction. Abstain from alcohol. Take PPI. Patient seen and examined at bedside. Feeling good. He did have home acid reflux type symptoms yesterday which caused some chest discomfort these have improved with eating. He no longer feels shaky. He wants to be discharged. Vital signs reviewed and stable. General: non toxic, no distress, appears at stated age Derm: warm, dry Head: atraumatic, normocephalic, symmetric Eyes: EOMI, no lid lag, anicteric sclera Mouth: no lip lesion, mucus membranes moist Cardiovascular: S1S2 reg, no murmur, positive posterior tibial pulse bilateral, Lungs: CTA bilateral, no rhonchi, no rales , no accessory muscle use Abdominal: soft, tender to palpation epigastric, no guarding, no appreciable organomegaly Ext: no gross muscle atrophy, no edema, no contractures Neuro: CN II-XI grossly intact, no focal neuro deficits Psych: Alert, oriented, appropriate affect A total of 32 minutes of time were spent preparing this complex discharge summary . Discharged on 10/13/21. Patient Condition at Discharge: Fair Plan - Discharge Summary Discharge Rx Participant: No New Discharge Prescriptions: New Folic Acid 1 mg PO DAILY #30 tablet Pantoprazole [Protonix] 40 mg PO DAILY #30 tab Thiamine [Vitamin B-1] 100 mg PO BID-W/MEALS #0 tab Discharge Medication List Folic Acid 1 mg PO DAILY #30 tablet 10/13/21 [Rx] Pantoprazole [Protonix] 40 mg PO DAILY #30 tab 10/13/21 [Rx] Thiamine [Vitamin B-1] 100 mg PO BID-W/MEALS #0 tab 10/13/21 [Rx] Follow up Appointment(s)/Referral(s): Valerio Swift MD [STAFF PHYSICIAN] - 4 Weeks (Dr. Swift's office will call patient with appointment date and time) None,Stated [Primary Care Provider] - 1 Week (-Patient states he will follow-up with his own primary physician and he will set up an appointment. -Patient needs to get referral from his primary physician for a GI Doctor) Patient Instructions/Handouts: Folic Acid (By mouth), Pantoprazole (By mouth), Abuse of Alcohol (DC), Pancytopenia (DC) Activity/Diet/Wound Care/Special Instructions: Activity: as tolerated Diet: low acid Special Instructions: Follow-up with a primary care provider of your choice, your should also see a GI doctor and a master carpenter Abstain from alcohol Discharge Disposition: HOME SELF-CARE
== END 2021-10-13 16:37 | disposition home or self-care (01) | DRG 897 ==
LOC: EC 18:19 → 5NMEDONC 21:14 → EC 21:21 → 3SCARD 21:45 → 5NMEDONC 10-10 18:06
PROVIDERS: ADMIT Internal Medicine; ATTEND Internal Medicine
DX: F10.229 Alcohol dependence with intoxication, unspecified (principal); D61.818 Other pancytopenia; K70.10 Alcoholic hepatitis without ascites; F10.239 Alcohol dependence with withdrawal, unspecified; K76.0 Fatty (change of) liver, not elsewhere classified; I48.91 Unspecified atrial fibrillation; Z28.310 Unvaccinated for COVID-19; Y90.8 Blood alcohol level of 240 mg/100 ml or more; K29.70 Gastritis, unspecified, without bleeding; K80.20 Calculus of gallbladder without cholecystitis without obstruction; E83.42 Hypomagnesemia; E87.6 Hypokalemia; F32.A Depression, unspecified; F41.9 Anxiety disorder, unspecified; R50.9 Fever, unspecified; R77.8 Other specified abnormalities of plasma proteins; F17.200 Nicotine dependence, unspecified, uncomplicated; Z71.6 Tobacco abuse counseling; Z80.9 Family history of malignant neoplasm, unspecified; Z86.718 Personal history of other venous thrombosis and embolism; W10.2XXA Fall (on)(from) incline, initial encounter; Y92.410 Unspecified street and highway as the place of occurrence of the external cause
CPT/HCPCS: 36415; 71046; 76705; 80048; 80053; 80320; 81001; 82607; 82728; 82746; 82747; 83540; 83550; 83605; 83615; 83690; 83735; 83883; 83921; 84100; 84165; 84425; 84443; 84484; 85025; 85027; 85045; 85610; 85652; 85730; 86038; 86334; 86431; 87040; 93005; 96360; 96361; 99285

== ENCOUNTER 2023-09-20 13:17 | Inpatient (IN) | payer MEDICARE, BC ==
[2023-09-20] MEDS ORDERED: LORazepam 1 MG TAB PO PRN ×3 (13:32)
--- NOTE | 2023-09-20 13:38 | ED ---
General Adult HPI - General Chief complaint: Seizure Stated complaint: Seizure Time Seen by Provider: 09/20/23 13:18 Source: patient, EMS Mode of arrival: EMS Limitations: no limitations - History of Present Illness Initial comments: Dictation was produced using e[employer] dictation software. please excuse any grammatical, word or spelling errors. Chief Complaint: 62-year-old male presents to the emergency department for seizure History of Present Illness: Patient 62-year-old alcoholic male presents to the emergency department after having suffered a seizure. Patient had a witnessed seizure by his roommate. Seizure lasted approximately 2 minutes. Patient was unconscious had tonic-clonic activity. It was unclear if patient had a po stictal state. EMS was called and patient brought to the ER. Patient states that he quit drinking 2 days ago. He will drink large amounts of liquor daily for years. Patient states that he had been hospitalized in the past for alcohol withdrawals. Patient denies any pain complaints. States that he feels little shaky otherwise has no issues. The ROS documented in this emergency department record has been reviewed and confirmed by me. Those systems with pertinent positive or negative responses have been documented in the HPI. All other systems are other negative and/or noncontributory. - Related Data Home Medications Medication Instructions Recorded Confirmed No Known Home Medications 09/20/23 09/20/23 Allergies Allergy/AdvReac Type Severity Reaction Status Date / Time No Known Allergies Allergy Verified 09/20/23 14:48 Review of Systems ROS Statement: Those systems with pertinent positive or pertinent negative responses have been documented in the HPI. ROS Other: All systems not noted in ROS Statement are negative. Past Medical History Past Medical History: Atrial Fibrillation History of Any Multi-Drug Resistant Organisms: None Reported Past Surgical History: Orthopedic Surgery Past Psychological History: Anxiety, Depression Smoking Status: Current every day smoker Past Alcohol Use History: Abuse, Daily, Heavy Past Drug Use History: None Reported - Past Family History Father Family Medical History: Cancer General Exam - General Exam Comments Initial Comments: PHYSICAL EXAM: General Impression: Alert and oriented x3, not in acute distress HEENT: Normocephalic atraumatic, extra-ocular movements intact, pupils equal and reactive to light bilaterally, mucous membranes moist. Cardiovascular: Heart regular rate and rhythm Chest: Able to complete full sentences, no retractions, no tachypnea Abdomen: abdomen soft, non-tender, non-distended, no organomegaly Musculoskeletal: Pulses present and equal in all extremities, no peripheral edema Motor: no focal deficits noted Neurological: CN II-XII grossly intact, no focal motor or sensory deficits noted, no hyperreflexia, no clonus Skin: Intact with no visualized rashes Psych: Normal affect and mood Limitations: no limitations Course Vital Signs 09/20/23 13:30 Temperature 98.2 F Pulse Rate 107 H Respiratory 18 Rate Blood Pressure 92/60 O2 Sat by Pulse 97 Oximetry EKG Findings - EKG Comments: EKG Findings:: My EKG interpretation: Ventricular rate 107, sinus tachycardia,. 141, cures 90, QTc 422. No CA prolongation, no QTC prolongation, no ST or T-wave changes noted. Overall, this EKG is unremarkable Medical Decision Making - Medical Decision Making Was pt. sent in by a medical professional or institution (, PA, WORSHIP LEADER, urgent care, hospital, or [facility]...) When possible be specific @ -No Did you speak to anyone other than the patient for history (EMS, parent, family, police, friend...)? What history was obtained from this source @ -No Did you review nursing and triage notes (agree or disagree)? Why? @ -I reviewed and agree with nursing and triage notes Were old charts reviewed (outside hosp., previous admission, EMS record, old EKG, old radiological studies, urgent care reports/EKG's, [facility] records)? Report findings @ -No old charts were reviewed Differential Diagnosis (chest pain, altered mental status, abdominal pain women, abdominal pain men, vaginal bleeding, musculoskeletal, weakness, fever, dyspnea, syncope, headache, dizziness, GI bleed, back pain, seizure, CVA, palpatations, mental health)? @ -Differential Seizure: Recurrent seizure disorder, febrile seizure, alcohol withdrawal, stimulants, meningitis, encephalitis, intercranial hemorrhage, intracranial tumor, stroke, eclampsia, thyrotoxicosis, hypocalcemia, hyponatremia, hypernatremia, hypomagnesemia, psychogenic, this is not meant to be an all-inclusive list. EKG interpreted by me (3pts min.). @ -See above X-rays interpreted by me (1pt min.). @ -None done CT interpreted by me (1pt min.). @ -CT scan the brain shows no acute processes U/S interpreted by me (1pt. min.). @ -None done What testing was considered but not performed or refused? (CT, X-rays, U/S, labs)? Why? @ -None What meds were considered but not given or refused? Why? @ -None Did you discuss the management of the patient with other professionals (professionals i.e. , PA, WORSHIP LEADER, lab, RT, psych nurse, social work program coordinator, pomologist, teacher, commissioned fire officer, home health care case manager)? Give summary @ -Case discussed with hospitalist for admission Was smoking cessation discussed for >3mins.? @ -No Was critical care preformed (if so, how long)? @ -No Were there social determinants of health that impacted care today? How? (Homelessness, low income, unemployed, alcoholism, drug addiction, transportation, low edu. Level, literacy, decrease access to med. care, long-term, rehab)? @ -No Was there de-escalation of care discussed even if they declined (Discuss DNR or withdrawal of care, Hospice)? DNR status @ -No What co-morbidities impacted this encounter? (DM, HTN, Smoking, COPD, CAD, Cancer, CVA, ARF, Chemo, Hep., AIDS, mental health diagnosis, sleep apnea, morbid obesity)? @ -None Was patient admitted / discharged? Hospital course, mention meds given and route, prescriptions, significant lab abnormalities, going to OR and other pertinent info. @ -8-year-old male presents emergency department for seizure. Patient having seizures likely secondary to alcohol withdrawal. He is trying to quit. Patient slightly tachycardic. Vital signs otherwise within acceptable limits. Laboratory evaluation obtained. Hyponatremic 129, potassium 2.6, magnesium 0.9. Patient given electrolyte replacement. Will be admitted for alcohol withdrawal and electrolyte derangement. Undiagnosed new problem with uncertain prognosis? @ -No Drug Therapy requiring intensive monitoring for toxicity (Heparin, Nitro, Insulin, Cardizem)? @ -No Were any procedures done? @ -No Diagnosis/symptom? Acute, or Chronic, or Acute on Chronic? Uncomplicated (without systemic symptoms) or Complicated (systemic symptoms)? @ -New onset seizure, electrolyte derangement Side effects of treatment? @ -No Exacerbation, Progression, or Severe Exacerbation? @ -No Poses a threat to life or bodily function? How? (Chest pain, USA, CT, pneumonia, PE, COPD, DKA, ARF, appy, cholecystitis, CVA, Diverticulitis, Homicidal, Suicidal, threat to staff... and all critical care pts) @ -yes - Lab Data Result diagrams: 09/20/23 13:47 09/20/23 13:47 Lab Results 09/20/23 09/20/23 Range/Units 13:47 13:47 WBC 4.8 (3.8-10.6) k/uL RBC 3.25 L (4.30-5.90) m/uL Hgb 11.6 L (13.0-17.5) gm/dL Hct 33.7 L (39.0-53.0) % MCV 103.8 H (80.0-100.0) fL MCH 35.6 H (25.0-35.0) pg MCHC 34.3 (31.0-37.0) g/dL RDW 13.3 (11.5-15.5) % Plt Count 38 L (150-450) k/uL MPV 11.8 Neutrophils % 78 % Lymphocytes % 12 % Monocytes % 7 % Eosinophils % 1 % Basophils % 0 % Neutrophils # 3.7 (1.3-7.7) k/uL Lymphocytes # 0.6 L (1.0-4.8) k/uL Monocytes # 0.3 (0-1.0) k/uL Eosinophils # 0.1 (0-0.7) k/uL Basophils # 0.0 (0-0.2) k/uL Manual Slide Review Performed Macrocytosis Slight Sodium 129 L (137-145) mmol/L Potassium 2.6 L* (3.5-5.1) mmol/L Chloride 90 L (98-107) mmol/L Carbon Dioxide 27 (22-30) mmol/L Anion Gap 12 mmol/L BUN 19 (9-20) mg/dL Creatinine 0.48 L (0.66-1.25) mg/dL Est GFR (CKD-EPI)AfAm >90 (>60 ml/min/1.73 sqM) Est GFR (CKD-EPI)NonAf >90 (>60 ml/min/1.73 sqM) Glucose 101 H (74-99) mg/dL Calcium 9.4 (8.4-10.2) mg/dL Magnesium 0.9 L* (1.6-2.3) mg/dL Disposition Clinical Impression: New onset seizure, Electrolyte abnormality Disposition: ADMITTED IP TO THIS [facility] Condition: Fair Instructions (If sedation given, give patient instructions): Seizure/Epilepsy Discharge Instructions & Follow-Up Referrals: None,Stated [Primary Care Provider] - 1-2 days Decision Time: 18:52
[2023-09-20 13:56] LABS: Basophils % (A) 0 %; Eosinophils # (A) 0.1 k/uL (0-0.7); Eosinophils % (A) 1 %; HCT 33.7 % (39.0-53.0); HGB 11.6 gm/dL (13.0-17.5); Lymphocytes # (A) 0.6 k/uL (1.0-4.8); Lymphocytes % (A) 12 %; MCH 35.6 pg (25.0-35.0); MCHC 34.3 g/dL (31.0-37.0); MCV 103.8 fL (80.0-100.0); Macrocytosis Slight; Mean Platelet Volume 11.8; Monocytes # (A) 0.3 k/uL (0-1.0); Monocytes % (A) 7 %; Neutrophils # (A) 3.7 k/uL (1.3-7.7); Neutrophils % (A) 78 %; RBC 3.25 m/uL (4.30-5.90); RDW 13.3 % (11.5-15.5); WBC 4.8 k/uL (3.8-10.6)
[2023-09-20] MEDS: THIAMINE 100 MG/ML 2 ML VIAL IM STA (13:56)
[2023-09-20 14:09] LABS: African American GFR (CKD) >90 (>60 ml/min/1.73 sqM); Anion Gap 12 mmol/L; Blood Urea Nitrogen 19 mg/dL (9-20); Calcium 9.4 mg/dL (8.4-10.2); Carbon Dioxide 27 mmol/L (22-30); Chloride 90 mmol/L (98-107); Glucose 101 mg/dL (74-99); Non-African American GFR(CKD) >90 (>60 ml/min/1.73 sqM); Sodium 129 mmol/L (137-145)
[2023-09-20 14:18] LABS: Magnesium 0.9 mg/dL (1.6-2.3); Potassium 2.6 mmol/L (3.5-5.1)
[2023-09-20 14:39] LABS: Platelet Count 38 k/uL (150-450)
[2023-09-20] MEDS: MAGNESIUM SULFATE-D5W PMX 1 GM in DEXTROSE/WATER 1 100ML.BAG IVPB SCH (15:34)
[2023-09-20] MEDS: POTASSIUM CHLORIDE ER 20 MEQ TAB.ER PO STA (15:40)
[2023-09-20] MEDS: SODIUM CHLORIDE 0.9% 1,000 ML IV STA (15:42)
[2023-09-20] MEDS: POTASSIUM CHLORIDE 20 MEQ in WATER FOR INJECTION 1 100ML.BAG IVPB STA (17:43)
--- NOTE | 2023-09-20 18:27 | CT ---
EXAMINATION TYPE: CT brain wo con DATE OF EXAM: 09/20/2023 COMPARISON: None HISTORY: 62-year-old male seizure TECHNIQUE: Examination was done in axial plane without intravenous contrast. Coronal and sagittal r econstructions performed. CT DLP: 1292 mGycm Automated exposure control for dose reduction was used. FINDINGS: There is no evidence of acute intracranial hemorrhage, acute ischemic changes, mass, mass-effect, or extra-axial fluid collection. There is no effacement of cerebral sulci or basal subarachnoid cister ns. There is no hydrocephalus. There is no midline shift. Padilla-white matter distinction is preserv ed. Encephalomalacia lateral left frontal lobe and cortical insufflation left parietal lobe patchy perive ntricular white matter hypodensity. Trace mucosal thickening ethmoid air cells. Mild mucosal thickening floors of the maxillary sinuses. Leftward nasal septal deviation. Mastoid air cells are pneumatized. Orbits and globes are intact. IMPRESSION: Mild burden of chronic small vessel ischemic disease. 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 No acute intracranial abnormality seen.
[2023-09-20] MEDS ORDERED: NALOXONE 0.4 MG/ML 1 ML VIAL IV PRN (18:46)
[2023-09-20] MEDS: SODIUM CHLORIDE 0.9% 1,000 ML IV SCH (20:11)
--- NOTE | 2023-09-21 02:49 | P.HPIM ---
History of Present Illness H&P Date: 09/20/23 Patient is a 62-year-old male with a PMH of alcohol abuse who presented to the emergency room after a seizure. Patient reports that he was at his friend's house earlier today when he suffered a witnessed tonic-clonic seizure lasting roughly 2 minutes. It is unclear if the patient had postictal confusion. Patient reports he has been trying to cut down on his alcohol, which he previously has been drinking 1/5 of hard liquor daily for the past several months. Notes his last drink was 2 days ago. Reports feeling shaky at the time of interview. Denied experiencing chest discomfort, shortness of breath, fever, chills, cough, abdominal pain, diarrhea. Has a significant history of alcohol abuse and withdrawal. CT brain in the emergency room revealed findings of old cortical infarcts with n o acute abnormalities with EKG showing sinus tachycardia at 107 bpm as reviewed by me. Laboratory evaluation was remarkable for potassium 2.6, magnesium 0.9, WBC count 4.8, hemoglobin 11.6, MCV 103.8, sodium 129, chloride 90. ED documentation reviewed and case discussed with ED provider. Review of systems: Pertinent positives and negatives as discussed in HPI, a complete review of systems was performed and all other systems are negative. Physical examination: Vital signs reviewed General: non toxic, foul-smelling disheveled male, no distress, appears at stated age, normal weight Derm: no unusual rashes/lesions, warm Head: atraumatic, normocephalic, symmetric Eyes: EOMI, no lid lag, anicteric sclera, pupils equal round reactive to light ENT: Nose and ears atraumatic Neck: No cervical lymphadenopathy, trachea midline, supple Mouth: no lip lesion, mucus membranes moist, tongue fasciculations noted Cardiovascular: S1S2 reg, no murmur, positive dorsalis pedis pulse bilateral, no edema Lungs: CTA bilateral, no rhonchi, no rales, no accessory muscle use Abdominal: soft, nontender to palpation, no guarding Ext: muscle strength 5 out of 5 in all 4 extremities grossly, no gross muscle atrophy, no contractures, Neuro: CN II-XI grossly intact, no gross focal neuro deficits, outstretched hand tremor noted Psych: Alert, oriented, appropriate affect Assessment: Alcohol withdrawal with seizure Hypokalemia and hypomagnesemia Hypochloremic hyponatremia Macrocytic anemia Imaging: CT brain in the emergency room revealed 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 Data Review: Laboratory evaluation was remarkable for potassium 2.6, magnesium 0.9, WBC count 4.8, hemoglobin 11.6, MCV 103.8, sodium 129, chloride 90. Plan: CIWA protocol Fall and seizure precautions Cardiac monitoring Continue IV fluids with normal saline 100 cc/h Replace potassium and magnesium and monitor for resolution Monitor BMP Check B12 and folate levels DVT prophylaxis: Lovenox subcu The patient is admitted with an anticipated greater than 2 midnight stay for evaluation of alcohol withdrawal CODE STATUS: Full Code Discussed with: Patient Anticipated discharge place: Home Past Medical History Past Medical History: Atrial Fibrillation History of Any Multi-Drug Resistant Organisms: None Reported Past Surgical History: Orthopedic Surgery Past Psychological History: Anxiety, Depression Smoking Status: Current every day smoker Past Alcohol Use History: Abuse, Daily, Heavy Past Drug Use History: None Reported - Past Family History Father Family Medical History: Cancer Medications and Allergies Home Medications Medication Instructions Recorded Confirmed Type No Known Home Medications 09/20/23 09/20/23 History Allergies Allergy/AdvReac Type Severity Reaction Status Date / Time No Known Allergies Allergy Verified 09/20/23 14:48 Physical Exam Vitals: Vital Signs Temp Pulse Resp BP Pulse Ox 09/20/23 22:09 92 18 107/73 98 09/20/23 13:30 98.2 F 107 H 18 92/60 97 Intake and Output 09/20/23 09/20/23 09/21/23 14:59 22:59 06:59 Other: Weight 72.575 kg Results CBC & Chem 7: 09/20/23 13:47 09/20/23 13:47 Labs: Abnormal Lab Results - Last 24 Hours (Table) 09/20/23 09/20/23 Range/Units 13:47 13:47 RBC 3.25 L (4.30-5.90) m/uL Hgb 11.6 L (13.0-17.5) gm/dL Hct 33.7 L (39.0-53.0) % MCV 103.8 H (80.0-100.0) fL MCH 35.6 H (25.0-35.0) pg Plt Count 38 L (150-450) k/uL Lymphocytes # 0.6 L (1.0-4.8) k/uL Sodium 129 L (137-145) mmol/L Potassium 2.6 L* (3.5-5.1) mmol/L Chloride 90 L (98-107) mmol/L Creatinine 0.48 L (0.66-1.25) mg/dL Glucose 101 H (74-99) mg/dL Magnesium 0.9 L* (1.6-2.3) mg/dL
[2023-09-21] MEDS: POTASSIUM CHLORIDE ER 20 MEQ TAB.ER PO STA ×2 (03:10→11:58)
[2023-09-21] MEDS: MAGNESIUM SULFATE-D5W PMX 1 GM in DEXTROSE/WATER 1 100ML.BAG IVPB SCH ×2 (03:12→11:59)
[2023-09-21] MEDS: SODIUM CHLORIDE 0.9% 1,000 ML IV SCH (03:17)
[2023-09-21 08:05] LABS: HCT 28.1 % (39.0-53.0); MCH 36.5 pg (25.0-35.0); MCHC 34.9 g/dL (31.0-37.0); MCV 104.3 fL (80.0-100.0); Macrocytosis Slight; Mean Platelet Volume 12.6; RBC 2.69 m/uL (4.30-5.90); RDW 13.7 % (11.5-15.5); WBC 2.7 k/uL (3.8-10.6)
[2023-09-21] MEDS: THIAMINE 100 MG TAB PO SCH (08:09)
[2023-09-21] MEDS: ENOXAPARIN 40 MG/0.4 ML SYRINGE SQ SCH (08:09)
[2023-09-21 08:20] LABS: African American GFR (CKD) >90 (>60 ml/min/1.73 sqM); Anion Gap 8 mmol/L; Blood Urea Nitrogen 15 mg/dL (9-20); Calcium 8.6 mg/dL (8.4-10.2); Carbon Dioxide 26 mmol/L (22-30); Chloride 98 mmol/L (98-107); Glucose 87 mg/dL (74-99); HGB 9.8 gm/dL (13.0-17.5); Magnesium 1.6 mg/dL (1.6-2.3); Non-African American GFR(CKD) >90 (>60 ml/min/1.73 sqM); Platelet Count 40 k/uL (150-450); Potassium 2.9 mmol/L (3.5-5.1); Sodium 132 mmol/L (137-145)
--- NOTE | 2023-09-21 11:09 | P.PN ---
Subjective Progress Note Date: 09/21/23 62-year-old male with a PMH of alcohol abuse who presented to the emergency room after a seizure. Patient reports that he was at his friend's house earlier today when he suffered a witnessed tonic-clonic seizure lasting roughly 2 minutes. It is unclear if the patient had postictal confusion. Patient reports he has been trying to cut down on his alcohol, which he previously has been drinking 1/5 of hard liquor daily for the past several months. Notes his last drink was 2 days ago. Reports feeling shaky at the time of interview. Has a significant history of alcohol abuse and withdrawal. 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 Laboratory evaluation was remarkable for potassium 2.6, magnesium 0.9, WBC count 4.8, hemoglobin 11.6, MCV 103.8, sodium 129, chloride 90. Patient was admitted for further management. 09/20 Patient was seen and examined. Received 4 g mag sulfate and KCl 100 meq (20 IV and 80 PO). No Ativan received so far. Feeling fine. Unsure of events that led to this hospitalization. CBC WBC 2.7, Hg 9.8, Hct 28.1, MCV 104.3, Plt 40. BMP Na 132, K 2.9, Cr 0.43. Mag 1.6. General: non toxic, no distress, appears at stated age Derm: warm, dry Head: atraumatic, normocephalic, symmetric Eyes: EOMI, no lid lag, anicteric sclera Mouth: no lip lesion, mucus membranes moist Cardiovascular: S1S2 reg, no murmur Lungs: Decreased bilateral, no rhonchi, no rales , no accessory muscle use Ext: no gross muscle atrophy, no edema, no contractures Neuro: no focal neuro deficits Psych: Alert, oriented, appropriate affect Alcohol withdrawal with seizure: CIWA protocol with Ativan PRN. Hypokalemia and hypomagnesemia: Received 4 g mag sulfate and KCl 100 meq (20 IV and 80 PO) in the ED. KCl 20 meq IV and 40 meq PO ordered today along with 2g Mag sulfate. Hypochloremic hyponatremia: Likely due to dehydration. Continue NS at 100 cc/hr. Improving. Macrocytic anemia: EtOH abuse. Thrombocytopenia: EtOH abuse. CODE STATUS: FULL CODE DVT Prophylaxis: Lovenox SQ GI Prophylaxis: Designated medical POA if patient is not able to make medical decisions for themselves: I have reviewed the following oracle manufacturing consultant notes: I have reviewed the results of the following tests: CBC, BMP, Mag. I have ordered the following tests: CBC, BMP, Mag I have discussed the care of this patient with the following independent historian: I have independently interpreted the following test below: I have discussed the management of this patient with the following physician: Objective - Vital Signs Vital signs: Vital Signs Temp 98.2 F 09/20/23 13:30 Pulse 85 09/21/23 08:00 Resp 18 09/21/23 08:00 BP 112/76 09/21/23 08:00 Pulse Ox 97 09/21/23 08:00 FiO2 Intake & Output 09/20/23 09/21/23 09/21/23 18:59 06:59 18:59 Weight 72.575 kg - Labs CBC & Chem 7: 09/21/23 07:29 09/21/23 07:29 Labs: Abnormal Lab Results - Last 24 Hours (Table) 09/20/23 09/20/23 Range/Units 13:47 13:47 RBC 3.25 L (4.30-5.90) m/uL Hgb 11.6 L (13.0-17.5) gm/dL Hct 33.7 L (39.0-53.0) % MCV 103.8 H (80.0-100.0) fL MCH 35.6 H (25.0-35.0) pg Plt Count 38 L (150-450) k/uL Lymphocytes # 0.6 L (1.0-4.8) k/uL Sodium 129 L (137-145) mmol/L Potassium 2.6 L* (3.5-5.1) mmol/L Chloride 90 L (98-107) mmol/L Creatinine 0.48 L (0.66-1.25) mg/dL Glucose 101 H (74-99) mg/dL Magnesium 0.9 L* (1.6-2.3) mg/dL
[2023-09-21] MEDS: POTASSIUM CHLORIDE 20 MEQ in WATER FOR INJECTION 1 100ML.BAG IVPB STA (11:59)
[2023-09-21] MEDS: ACETAMINOPHEN TAB 325 MG TAB PO PRN (21:06)
[2023-09-22] MEDS: CALCIUM CARBONATE 500 MG CHEWABLE PO PRN (06:41)
[2023-09-22] MEDS: ONDANSETRON 4 MG/2 ML VIAL IVP PRN (09:05)
[2023-09-22 10:17] LABS: HCT 31.7 % (39.0-53.0); HGB 10.5 gm/dL (13.0-17.5); MCH 35.7 pg (25.0-35.0); MCHC 33.1 g/dL (31.0-37.0); Macrocytosis Moderate; Mean Platelet Volume 10.7; RBC 2.94 m/uL (4.30-5.90); RDW 13.5 % (11.5-15.5); WBC 3.5 k/uL (3.8-10.6)
[2023-09-22 10:26] LABS: Platelet Count 61 k/uL (150-450)
[2023-09-22 10:30] LABS: African American GFR (CKD) >90 (>60 ml/min/1.73 sqM); Anion Gap 6 mmol/L; Blood Urea Nitrogen 6 mg/dL (9-20); Calcium 8.7 mg/dL (8.4-10.2); Carbon Dioxide 28 mmol/L (22-30); Chloride 100 mmol/L (98-107); Glucose 136 mg/dL (74-99); Magnesium 1.2 mg/dL (1.6-2.3); Non-African American GFR(CKD) >90 (>60 ml/min/1.73 sqM); Potassium 3.1 mmol/L (3.5-5.1); Sodium 134 mmol/L (137-145)
[2023-09-22] MEDS: POTASSIUM CHLORIDE ER 20 MEQ TAB.ER PO STA (10:56)
[2023-09-22] MEDS: SUCRALFATE 1 GM TAB PO STA (10:56)
[2023-09-22] MEDS: MAGNESIUM SULFATE-D5W PMX 1 GM in DEXTROSE/WATER 1 100ML.BAG IVPB SCH (10:57)
--- NOTE | 2023-09-22 11:22 | P.PN ---
Subjective Progress Note Date: 09/22/23 62-year-old male with a PMH of alcohol abuse who presented to the emergency room after a seizure. Patient reports that he was at his friend's house earlier today when he suffered a witnessed tonic-clonic seizure lasting roughly 2 minutes. It is unclear if the patient had postictal confusion. Patient reports he has been trying to cut down on his alcohol, which he previously has been drinking 1/5 of hard liquor daily for the past several months. Notes his last drink was 2 days ago. Reports feeling shaky at the time of interview. Has a significant history of alcohol abuse and withdrawal. 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 Laboratory evaluation was remarkable for potassium 2.6, magnesium 0.9, WBC count 4.8, hemoglobin 11.6, MCV 103.8, sodium 129, chloride 90. Patient was admitted for further management. 09/20 Patient was seen and examined. Received 4 g mag sulfate and KCl 100 meq (20 IV and 80 PO). No Ativan received so far. Feeling fine. Unsure of events that led to this hospitalization. CBC WBC 2.7, Hg 9.8, Hct 28.1, MCV 104.3, Plt 40. BMP Na 132, K 2.9, Cr 0.43. Mag 1.6. 09/21 Patient was seen and examined. Received 2 g mag sulfate and KCl 40 meq PO and 20 meq IV yesterday. No Ativan so far. He reports nausea and vomiting which he relates to heartburn. CBC WBC 3.5, Hg 10.5, Hct 31.7, MCV 108, Plt 61. BMP Na 134, K 3.1, BUN 6, Cr 0.42. Mag 1.2. General: non toxic, no distress, appears at stated age Derm: warm, dry Head: atraumatic, normocephalic, symmetric Eyes: EOMI, no lid lag, anicteric sclera Mouth: no lip lesion, mucus membranes moist Cardiovascular: S1S2 reg, no murmur Lungs: Decreased bilateral, no rhonchi, no rales , no accessory muscle use Ext: no gross muscle atrophy, no edema, no contractures Neuro: no focal neuro deficits Psych: Alert, oriented, appropriate affect Alcohol withdrawal with seizure: CIWA protocol with Ativan PRN. Nausea and vomiting likely related to GERD and gastritis: Start Tums 500 mg PO TID PRN. Add Carafate 1g PO x 1. Hypokalemia and hypomagnesemia: Received 4 g mag sulfate and KCl 100 meq (20 IV and 80 PO) in the ED. KCl 40 meq PO ordered today along with 4g Mag sulfate. Hypochloremic hyponatremia: Likely due to dehydration. Continue NS at 100 cc/hr. Improving. Macrocytic anemia: EtOH abuse. Thrombocytopenia: EtOH abuse. CODE STATUS: FULL CODE DVT Prophylaxis: Lovenox SQ GI Prophylaxis: Designated medical POA if patient is not able to make medical decisions for themselves: I have reviewed the following independent beauty consultant notes: I have reviewed the results of the following tests: CBC, BMP, Mag. I have ordered the following tests: CBC, BMP, Mag I have discussed the care of this patient with the following independent historian: ALLISON. I have independently interpreted the following test below: I have discussed the management of this patient with the following physician: Objective - Vital Signs Vital signs: Vital Signs Temp 98.4 F 09/22/23 04:50 Pulse 76 09/22/23 10:30 Resp 16 09/22/23 10:30 BP 144/80 09/22/23 08:23 Pulse Ox 96 09/22/23 08:23 FiO2 Intake & Output 09/21/23 09/22/23 09/22/23 18:59 06:59 18:59 Intake Total 118 240 Output Total 1300 Balance 118 -1300 240 Weight 72.575 kg Intake: Oral 118 240 Output: Urine 1300 Other: Voiding Method Urinal Urinal # Bowel Movements 1 - Labs CBC & Chem 7: 09/22/23 09:38 09/22/23 09:38 Labs: Abnormal Lab Results - Last 24 Hours (Table) 09/22/23 09/22/23 Range/Units 09:38 09:38 WBC 3.5 L (3.8-10.6) k/uL RBC 2.94 L (4.30-5.90) m/uL Hgb 10.5 L (13.0-17.5) gm/dL Hct 31.7 L (39.0-53.0) % MCV 108.0 H (80.0-100.0) fL MCH 35.7 H (25.0-35.0) pg Plt Count 61 L D (150-450) k/uL Sodium 134 L (137-145) mmol/L Potassium 3.1 L (3.5-5.1) mmol/L BUN 6 L (9-20) mg/dL Creatinine 0.42 L (0.66-1.25) mg/dL Glucose 136 H (74-99) mg/dL Magnesium 1.2 L (1.6-2.3) mg/dL
[2023-09-23 04:56] VITALS: TEMP 99.1
[2023-09-23 08:45] LABS: HCT 29.1 % (39.0-53.0); HGB 9.4 gm/dL (13.0-17.5); MCH 34.5 pg (25.0-35.0); MCHC 32.3 g/dL (31.0-37.0); MCV 106.9 fL (80.0-100.0); Macrocytosis Moderate; Mean Platelet Volume 11.2; RBC 2.72 m/uL (4.30-5.90); RDW 13.6 % (11.5-15.5); WBC 3.2 k/uL (3.8-10.6)
[2023-09-23 09:12] LABS: Platelet Count 65 k/uL (150-450)
[2023-09-23 09:22] LABS: African American GFR (CKD) >90 (>60 ml/min/1.73 sqM); Anion Gap 5 mmol/L; Blood Urea Nitrogen 6 mg/dL (9-20); Calcium 8.1 mg/dL (8.4-10.2); Carbon Dioxide 26 mmol/L (22-30); Chloride 103 mmol/L (98-107); Glucose 129 mg/dL (74-99); Magnesium 1.7 mg/dL (1.6-2.3); Non-African American GFR(CKD) >90 (>60 ml/min/1.73 sqM); Potassium 3.5 mmol/L (3.5-5.1); Sodium 134 mmol/L (137-145)
[2023-09-23 10:18] VITALS: BP 120/74; PULSE 90; RESP 16
--- NOTE | 2023-09-23 12:14 | P.DS ---
Providers Date of admission: 09/20/23 18:46 Expected date of discharge: 09/23/23 Attending physician: Caity Moreno DO Primary care physician: Stated None Hospital Course: 62-year-old male with a PMH of alcohol abuse who presented to the emergency room after a seizure. Patient reports that he was at his friend's house earlier today when he suffered a witnessed tonic-clonic seizure lasting roughly 2 minutes. It is unclear if the patient had postictal confusion. Patient reports he has been trying to cut down on his alcohol, which he previously has been drinking 1/5 of hard liquor daily for the past several months. Notes his last drink was 2 days ago. Reports feeling shaky at the time of interview. Has a significant history of alcohol abuse and withdrawal. 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 Laboratory evaluation was remarkable for potassium 2.6, magnesium 0.9, WBC count 4.8, hemoglobin 11.6, MCV 103.8, sodium 129, chloride 90. Patient was admitted for further management. 09/20 Patient was seen and examined. Received 4 g mag sulfate and KCl 100 meq (20 IV and 80 PO). No Ativan received so far. Feeling fine. Unsure of events that led to this hospitalization. CBC WBC 2.7, Hg 9.8, Hct 28.1, MCV 104.3, Plt 40. BMP Na 132, K 2.9, Cr 0.43. Mag 1.6. 09/21 Patient was seen and examined. Received 2 g mag sulfate and KCl 40 meq PO and 20 meq IV yesterday. No Ativan so far. He reports nausea and vomiting which he relates to heartburn. CBC WBC 3.5, Hg 10.5, Hct 31.7, MCV 108, Plt 61. BMP Na 134, K 3.1, BUN 6, Cr 0.42. Mag 1.2. 09/22 Patient was seen and examined. Nausea and heartburn improved. Received 4 g mag sulfate and KCl 40 meq PO yesterday. CBC WBC 3.2, Hg 9.4, Hct 29.1, MCV 106.9. BMP Na 134, BUN 6, Cr 0.5, glu 129, Ca 8.1. Mag 1.7. Plans to discharge the patient home on KCl 20 meq PO QD x 7 days, Mag oxide 250 mg PO BID x 7 days, Protonix and Tums. Advised to quit drinking alcohol. General: non toxic, no distress, appears at stated age Derm: warm, dry Head: atraumatic, normocephalic, symmetric Eyes: EOMI, no lid lag, anicteric sclera Mouth: no lip lesion, mucus membranes moist Cardiovascular: S1S2 reg, no murmur Lungs: Decreased bilateral, no rhonchi, no rales , no accessory muscle use Ext: no gross muscle atrophy, no edema, no contractures Neuro: no focal neuro deficits Psych: Alert, oriented, appropriate affect Discharge Diagnosis: Alcohol withdrawal with seizure Nausea and vomiting likely related to GERD and gastritis Hypokalemia and hypomagnesemia Hypochloremic hyponatremia Macrocytic anemia Thrombocytopenia This complex discharge took 35 minutes to complete. Patient Condition at Discharge: Stable Plan - Discharge Summary Discharge Rx Participant: Yes New Discharge Prescriptions: New Pantoprazole [Protonix] 40 mg PO DAILY #30 tab Magnesium Oxide [Mag-Ox] 250 mg PO BID #14 tablet Calcium Carbonate [Tums] 500 mg PO TID PRN #90 tab PRN Reason: Heartburn Potassium Chloride ER [K-Dur 20] 20 meq PO DAILY #7 tab Discharge Medication List Calcium Carbonate [Tums] 500 mg PO TID PRN #90 tab 09/23/23 [Rx] Magnesium Oxide [Mag-Ox] 250 mg PO BID #14 tablet 09/23/23 [Rx] Pantoprazole [Protonix] 40 mg PO DAILY #30 tab 09/23/23 [Rx] Potassium Chloride ER [K-Dur 20] 20 meq PO DAILY #7 tab 09/23/23 [Rx] Follow up Appointment(s)/Referral(s): None,Stated [Primary Care Provider] - 1-2 days (Please find and schedule an appointment with a primary care physician) Ambulatory/Diagnostic Orders: Basic Metabolic Panel [LAB.AMB] Time Frame: 3 Days, Location: None Selected Magnesium [LAB.AMB] Location: None Selected Patient Instructions/Handouts: Seizure/Epilepsy Discharge Instructions & Follow-Up Activity/Diet/Wound Care/Special Instructions: Diet: Regular Please refrain from drinking alcohol. Discharge/Stand Alone Forms: AA Meetings [place], Who Do I Call?, Community Resources, Outpatient Counseling, Inp Substance Abuse Facilities, Personal Reinsurance Accountant, Area PCPs Discharge Disposition: HOME SELF-CARE
== END 2023-09-23 11:25 | disposition home or self-care (01) | DRG 101 ==
LOC: EC 13:17 → 3SCARD 18:46
PROVIDERS: ADMIT Internal Medicine; ATTEND Internal Medicine
DX: G40.409 Other generalized epilepsy and epileptic syndromes, not intractable, without status epilepticus (principal); E87.1 Hypo-osmolality and hyponatremia; F10.139 Alcohol abuse with withdrawal, unspecified; E87.6 Hypokalemia; E87.8 Other disorders of electrolyte and fluid balance, not elsewhere classified; F17.200 Nicotine dependence, unspecified, uncomplicated; F32.A Depression, unspecified; F41.9 Anxiety disorder, unspecified; I48.91 Unspecified atrial fibrillation; K29.70 Gastritis, unspecified, without bleeding; K21.9 Gastro-esophageal reflux disease without esophagitis; E86.0 Dehydration; E83.42 Hypomagnesemia; D69.6 Thrombocytopenia, unspecified; D53.9 Nutritional anemia, unspecified; Z86.73 Personal history of transient ischemic attack (TIA), and cerebral infarction without residual deficits
CPT/HCPCS: 36415; 70450; 80048; 83605; 83735; 85025; 85027; 93005; 96361; 96365; 96372; 99285